=== PATIENT | female | born 1990 | race Native Hawaiian/Other Pacific Islander ===

== ENCOUNTER → 2019-10-24 15:30 | Outpatient (CLI) | payer OTHER, MEDICAID, SELFPAY | PROVIDERS: Family Provider Family Medicine; PCP Family Medicine; Visit Provider Physician Assistant | DX: J02.9 Acute pharyngitis, unspecified (principal) | CPT/HCPCS: 87070 ==

== ENCOUNTER → 2019-11-30 08:12 | Outpatient (CLI) | payer OTHER, MEDICAID, SELFPAY ==
--- NOTE | 2019-11-30 | DI.US.S_ITS ---
PROCEDURE: US PELVIC COMPLETE INDICATIONS: POSITIVE TEST; DATES TECHNIQUE: Real-time scanning was performed of the pelvic organs, with image documentation. Additional endovaginal scanning was necessary due to incomplete visualization of the adnexal and endometrial structures by transabdominal scanning. COMPARISON: None. FINDINGS: Transabdominal scanning: A mild amount of simple appearing free pelvic fluid is seen, which is considered to be within physiologic limits. Limited scanning through the kidneys shows no hydronephrosis. Endovaginal scanning: Uterus: Uterus is normal in size at 9 x 5.4 x 6.4 cm. The endometrium measures 17 mm in combined thickness. No findings of an intrauterine can be seen. Ovaries: The right ovary measures 4 x 2.6 x 3.2 cm and demonstrates a complex cyst that measures 2.3 x 2.2 x 2.3 cm, with surrounding increased vascularity. The left ovary measures 3.1 x 1.6 x 1.6 cm. No adnexal masses are seen. IMPRESSION: No findings of an intrauterine are seen. These imaging findings most likely related to a completed spontaneous miscarriage. However, there is a cystic lesion with surrounding vascularity seen involving the right ovary. This most likely relates to a collapsing corpus luteum. Differential diagnosis includes an ovarian ectopic, yet this is considered to be statistically much less likely. Please correlate with known patient history. Close clinical followup, with serial beta-hCG and serial ultrasound are recommended, if clinically appropriate. A mild amount of free pelvic fluid is seen, which is considered to be within physiologic limits. Dictated by: Deo Stover M.D. on 11/30/2019 at 11:58 Approved by: Deo Stover M.D. on 11/30/2019 at 12:01
== END ==
PROVIDERS: Family Provider Family Medicine; PCP Family Medicine; Referring Provider Family Medicine; Visit Provider Family Medicine
DX: Z36.87 Encounter for antenatal screening for uncertain dates (principal)
CPT/HCPCS: 76830; 76856

== ENCOUNTER → 2019-12-10 11:14 | Outpatient (CLI) | payer OTHER, MEDICAID, SELFPAY ==
--- NOTE | 2019-12-10 | DI.US.S_ITS ---
PROCEDURE: US OB <= 14 WEEKS FETUS INDICATIONS: Amenorrhea, unspecified OUTSIDE/PRIOR DATING DATA: Last menstrual period (LMP): 10/24/19. LMP-based estimated date of delivery (BC): 07/30/20 . First dating scan (date and location): 12/10/19 . Estimated date of delivery (BC) from first dating scan: 08/01/20 . TECHNIQUE: Real-time scanning was performed of the fetus and maternal pelvic organs, with image documentation. Endovaginal scanning was also performed to better visualize the fetus and maternal ovaries. COMPARISON: None. FINDINGS: Embryo: Intrauterine gestational sac is noted. Mean gestational sac diameter measures 1.6 cm, 6 weeks 3 days, corresponding to an BC of 08/01/20. However, no pole is identified. A yolk sac is visualized. Measurement variability in dating: +/- 4 weeks by LMP, +/- 7 days by mean sac diameter (use before 6 weeks gestation if crown-rump length not able to be measured), +/- 5 days by crown-rump length (up to 8 weeks 6 days gestation), +/- 7 days by crown-rump length (up to 13 weeks 6 days gestation). Maternal organs: Ovaries unremarkable except for a presumed right-sided corpus luteum. . Limited images through the kidneys demonstrate no hydronephrosis. IMPRESSION: Intrauterine gestational sac however no pole identified. This could represent early intrauterine , however cannot exclude blighted ovum and recommend 1 week follow-up pelvic ultrasound. Please correlate with serial beta HCG values Dictated by: Carlito Garcia M.D. on 12/10/2019 at 14:54 Approved by: Carlito Garcia M.D. on 12/10/2019 at 14:59
== END ==
PROVIDERS: Family Provider Family Medicine; PCP Family Medicine; Referring Provider Family Medicine; Visit Provider Family Medicine
DX: N91.2 Amenorrhea, unspecified (principal)
CPT/HCPCS: 76801

== ENCOUNTER → 2019-12-18 09:05 | Outpatient (CLI) | payer OTHER, MEDICAID, SELFPAY ==
--- NOTE | 2019-12-18 | DI.US.S_ITS ---
PROCEDURE: US OB <= 14 WEEKS FETUS INDICATIONS: OB FOLLOW UP OUTSIDE/PRIOR DATING DATA: Last menstrual period (LMP): 10/24/2019 . LMP-based estimated date of delivery (BC): 07/30/2020 . First dating scan (date and location): 12/10/2019 . Estimated date of delivery (BC) from first dating scan: 08/01/2020 . TECHNIQUE: Real-time scanning was performed of the fetus and maternal pelvic organs, with image documentation. Endovaginal scanning was also performed to better visualize the fetus and maternal ovaries. [facility] 14 WEEKS F[facility]US, 12/10/2019, 11:56. FINDINGS: Embryo: Single live intrauterine is identified with crown-rump length measuring 9 mm corresponding to 7 weeks 0 days. heart rate identified at 140 beats per minute. Measurement variability in dating: +/- 4 weeks by LMP, +/- 7 days by mean sac diameter (use before 6 weeks gestation if crown-rump length not able to be measured), +/- 5 days by crown-rump length (up to 8 weeks 6 days gestation), +/- 7 days by crown-rump length (up to 13 weeks 6 days gestation). Maternal organs: Ovaries demonstrate a right corpus luteal cyst.. Limited images through the kidneys demonstrate no hydronephrosis. Cervical length measures 3.8 cm. IMPRESSION: 1. Single live intrauterine with ultrasound gestational age of 7 weeks 0 days corresponding to ultrasound BC of 08/01/2020. 2. Recommend follow-up imaging at 20-22 weeks for dates and anatomy. Dictated by: Radha Moore M.D. on 12/18/2019 at 13:42 Approved by: Radha Moore M.D. on 12/18/2019 at 13:49
== END ==
PROVIDERS: Family Provider Family Medicine; PCP Family Medicine; Referring Provider Family Medicine; Visit Provider Family Medicine
DX: Z36.2 Encounter for other antenatal screening follow-up (principal); Z3A.01 Less than 8 weeks gestation of pregnancy
CPT/HCPCS: 76801; 76817

== ENCOUNTER → 2020-03-14 09:11 | Outpatient (CLI) | payer OTHER, MEDICAID, SELFPAY ==
--- NOTE | 2020-03-14 | DI.US.S_ITS ---
PROCEDURE: US OB >= 14 WEEKS FETUS INDICATIONS: ANATOMY SCAN OUTSIDE/PRIOR DATING DATA: Last menstrual period (LMP): 10/24/2019. LMP-based estimated date of delivery (BC): 07/30/2020 . First dating scan (date and location): 12/10/2019 . Estimated date of delivery (BC) from first dating scan: 08/01/2020 . TECHNIQUE: Real-time scanning was performed of the fetus, with image documentation and biometric measurements. Endovaginal scanning: No COMPARISON: [facility], OB <= 14 WEEKS FETUS, 12/18/2019, 9:46. FINDINGS: General: A single living intrauterine gestation is present. Presentation: Breech. Placenta: Placental position is anterior , without previa. Amniotic fluid index: 16 cm cm, normal range is 5-24 cm. heart rate: 152 beats per minute. Maternal cervical canal: 3.8 cm cm long. Normal lower limit is 2.5 cm. biometrics: Biparietal diameter: 19 weeks 3 Head circumference: 19 weeks 4 days Abdominal circumference: 20 weeks 1 day Femur length: 20 weeks 2 days Estimated gestational age from initial scan: 20 weeks Composite gestational age from present scan: 19 weeks 6 days Estimated weight and percentile: 335 g; 54th percentile Measurement variability for biometric dating: +/- 7 days from 14 weeks to 15 weeks 6 days gestation, +/- 10 days from 16 weeks to 21 weeks 6 days gestation, +/- 2 weeks from 22 weeks to 27 weeks 6 days gestation, +/- 3 weeks for 28 weeks gestation or later. weight reference: 4500 g or EFW >90/95% is considered macrosomia or large for gestational age. EFW <10% is small for gestational age. EFW 5% or less is considered intra-uterine growth restriction. Anatomic survey: Neuro: Ventricles are non-dilated at less than 10 mm. Cisterna magna is normal at 3-11 mm. Cerebellum is normal in size and morphology. Nuchal skin fold: Normal at less than 6 mm between 14-21 weeks gestational age. Face: Nose and lips, facial profile are normal. Spine: No evidence for spina bifida. Heart: 4-chambered heart is present, with normal ventricular outflow tracts. Diaphragm: Diaphragm is intact. Stomach: Left-sided stomach is present. Kidneys: No hydronephrosis. Normal is less than 5 mm in 2nd trimester, less than 7 mm in 3rd trimester. Cord: 3-vessel cord has orthotopic insertion. Bladder: Normal in size. Extremities: All 4 extremities identified. IMPRESSION: 1. Single living intrauterine demonstrating appropriate interval growth with estimated weight at the 54th percentile. 2. Normal anatomic survey. Dictated by: Lizandro Bojorquez [facility] Interpreted: Case Brown MD on 03/14/2020 at 11:10 Approved by: Case Brown M.D. on 03/14/2020 at 14:17
== END ==
PROVIDERS: Family Provider Family Medicine; PCP Family Medicine; Referring Provider Family Medicine; Visit Provider Family Medicine
DX: Z36.89 Encounter for other specified antenatal screening (principal); Z3A.19 19 weeks gestation of pregnancy
CPT/HCPCS: 76811

== ENCOUNTER 2020-05-06 14:50 | Emergency (ER) | payer OTHER, MEDICAID, SELFPAY ==
--- NOTE | 2020-05-06 14:55 | DI.US.S_ITS ---
PROCEDURE: US OB >= 14 WEEKS FETUS INDICATIONS: bleeding during sex/check placenta/fluid/fetus/cervix OUTSIDE/PRIOR DATING DATA: Last menstrual period (LMP): 10/24/2019 . LMP-based estimated date of delivery (BC): 07/30/2020 . First dating scan (date and location): 12/10/2019 . Estimated date of delivery (BC) from first dating scan: 08/01/2020 . TECHNIQUE: Real-time scanning was performed of the fetus, with image documentation and biometric measurements. COMPARISON: [facility], OB >= 14 WEEKS FETUS, 03/14/2020, 9:25. FINDINGS: General: A single living intrauterine gestation is present. Presentation: Breech. Placenta: Placental position is anterior , without previa. Amniotic fluid index: 13.6 cm, normal range is 5-24 cm. heart rate: 143 beats per minute. Maternal cervical canal: 4.2 cm long. Normal lower limit is 2.5 cm. biometrics: Biparietal diameter: 6.9 cm 27 weeks 5 days Head circumference: 27.1 cm 28 weeks 2 days Abdominal circumference: 22.9 cm 27 weeks 2 days Femur length: 5.3 cm 20 weeks 2 days Estimated gestational age from initial scan: 27 weeks 4 days Composite gestational age from present scan: 27 weeks 6 days Estimated weight and percentile: 1123 g 45th percentile IMPRESSION: 1. Single live intrauterine with appropriate interval growth. Dictated by: Radha Moore M.D. on 05/06/2020 at 18:42 Approved by: Radha Moore M.D. on 05/06/2020 at 18:44
[2020-05-06 14:58] VITALS: BP 108/69; PULSE 92; RESP 19; TEMP 36.4; O2SAT 98; BMI 34.0
[2020-05-06 17:12] VITALS: BP 105/65; PULSE 82; O2SAT 97
[2020-05-06 17:30] VITALS: BP 104/59; PULSE 83; O2SAT 99
[2020-05-06 18:00] VITALS: BP 107/59; PULSE 88; O2SAT 98
--- NOTE | 2020-05-06 18:08 | ED_ITS ---
H[facility] - [facility] - Last Filed: 05/06/20 21:56> General Chief complaint: OB/Uterine Contractions Stated complaint: 28 wks preg for US/ bleeding Time Seen by Provider: 05/06/20 16:08 Source: patient Mode of arrival: Family Vehicle Limitations: no limitations History of Present Illness HPI Narrative: This is a 29-year-old female, and 28 week +2 EGA female with LMP of 10/22/2019 presents to ED with chief complain of a vaginal bleeding which occurred last night after intercourse which was heavy and company discomfort for about an hour then subsided. Patient reports now she has been just spotting and there is no abdominal or pelvic pain at this time. Patient has been moving her status all day. She was evaluated by Dr. Braga at the office with pelvic exam and was referred to emergency room for ultrasound test. Otherwise, patient denies urinary symptoms, chest pain, breathing difficulty, fever. According to old EMR, blood type A+. Last US for OB on 12/18/19 found a single living IUP exhibiting appropriate interval growth with estimated weight at the 54% percentile with normal anatomic survey. Date of Last Menstrual Period: 10/22/19 Patient : Yes Expected Date of Delivery: 07/28/20 Related Data Allergies Allergy/AdvReac Type Severity Reaction Status Date / Time No Known Allergies Allergy Unknown Verified 05/06/20 15:03 [NO KNOWN ALLERGIES] Review of Systems <[facility] - Last Filed: 05/06/20 21:56> Review of Systems Narrative: General: Denies fever, chills, fatigue, malaise, sweats. HEENT: Denies sinus pain, ear pain, sore throat, difficulty swallowing, dizziness. Respiratory: Denies dyspnea, cough, wheezing, hemoptysis, sputum. Cardiovascular: Denies chest pain, palpitations, orthopnea, edema. Gastrointestinal: HPI : See HPI Musculoskeletal: Denies weakness, joint pain or bony pain. Skin: Denies rash, skin lesions, or other. Neurologic: Denies weakness, headache, numbness, change in speech, confusion, seizures, incoordination. Psychiatric: No concerning psychosocial issues. 12-point review of systems is negative except for those stated above. PMFSH - <[facility] - Last Filed: 05/06/20 21:56> Past Medical History Additional medical history: GERD Date of Last Menstrual Period: 10/22/19 Patient : Yes Expected Date of Delivery: 07/28/20 Exam <EBENEZER FinchP - Last Filed: 05/06/20 21:56> Narrative Exam Narrative: General appearance: well developed, well nourished, in no acute distress. Head: normocephalic, atraumatic, no scalp lesions, non-tender. ENT: Hearing grossly intact. Airway patent. Neck/Thyroid: neck supple, full range of motion, no visible masses or meningeal signs. No JVD, non-tender without lymphadenopathy. Skin: no suspicious rashes, lesions over visible areas. Warm and dry and appropriate color for ethnicity. Heart: no clubbing, no cyanosis, no edema. S1 and S2 normal. RRR w/o murmurs, clicks, or bruits. Lungs: Breathing even and unlabored. No stridor. No accessory muscles used. Able to speak in full sentences. Chest: normal shape and expansion. Abdomen: non-obese, non-distended. soft to palpate and non-tender. Bowel sounds intact in all quadrant. Neurologic: alert and oriented. Cognitive exam, ANALYSIS INTERN and PNS grossly intact on informal exam. Psych: good eye contact, normal affect. Initial Vital Signs Initial Vital Signs: Vital Signs Temperature 97.6 F 05/06/20 14:58 Pulse Rate 92 H 05/06/20 14:58 Respiratory Rate 19 05/06/20 14:58 Blood Pressure 108/69 05/06/20 14:58 Pulse Oximetry 98 05/06/20 14:58 <Brooke Espinoza DO - Last Filed: 05/07/20 07:21> Initial Vital Signs Initial Vital Signs: Vital Signs Temperature 97.6 F 05/06/20 14:58 Pulse Rate 92 H 05/06/20 14:58 Respiratory Rate 19 05/06/20 14:58 Blood Pressure 108/69 05/06/20 14:58 Pulse Oximetry 98 05/06/20 14:58 Scores <Natanael Murphy [employer] - Last Filed: 05/06/20 21:56> GCS Stacie coma scale eye opening: Spontaneous Stacie coma scale verbal response: Orientated Kennard coma scale motor response: Obey commands Kennard coma scale total score: 15 Course <Natanael QUIANA Murphy - Last Filed: 05/06/20 21:56> Orders Ordered: ED Orders 05/06/20 14:55 US OB >= 14 weeks Fetus Stat Vital Signs Vital signs: Vital Signs - 8 hr 05/06/20 14:58 05/06/20 17:12 05/06/20 17:30 Temperature 97.6 F Pulse Rate 92 H 82 83 Respiratory Rate 19 Blood Pressure 108/69 105/65 104/59 L Pulse Oximetry 98 97 99 05/06/20 18:00 05/06/20 19:14 Temperature Pulse Rate 88 88 Respiratory Rate 16 Blood Pressure 107/59 L 106/76 Pulse Oximetry 98 99 <Brooke Espinoza DO - Last Filed: 05/07/20 07:21> Orders Ordered: ED Orders 05/06/20 14:55 US OB >= 14 weeks Fetus Stat Vital Signs Vital signs: Vital Signs - 8 hr 05/06/20 14:58 05/06/20 17:12 05/06/20 17:30 Temperature 97.6 F Pulse Rate 92 H 82 83 Respiratory Rate 19 Blood Pressure 108/69 105/65 104/59 L Pulse Oximetry 98 97 99 05/06/20 18:00 05/06/20 19:14 Temperature Pulse Rate 88 88 Respiratory Rate 16 Blood Pressure 107/59 L 106/76 Pulse Oximetry 98 99 MDM - OB/Uterine Contractions <Natanael McleanangRosalinaQUIANA Miller - Last Filed: 05/06/20 21:56> Differential Diagnosis Differential diagnosis: Likely other (Placenta previa, placenta rupture, vaginal bleeding during ) Medical Records Attestation: I reviewed the patient's medical records. Lab Data Attestation: I reviewed the patient's lab results. Labs: Urine Dip Bedside Urine Glucose Negative Bedside Urine Bilirubin - Negative Bedside Urine Ketone - Negative Urine Specific [place] 1.015 Bedside Urine Occult Blood - Negative Bedside Urine pH 6.5 Bedside Urine Protein - Negative Bedside Urine Urobilinogen - Negative Bedside Urine Nitrite - Negative Bedside Urine Leukocytes - Negative Esterase Imaging Data US-OB: Radiologist's Impression: [address] [id number] ReportSigned Patient: Jesika Wakefield KMR#: [id number]: 1990Acct:[id number]/Sex: FDate of Service: 05/06/20Loc: EDAccession Number: [id number] Procedure: US OB >= 14 weeks Fetus Ordering Provider: Brooke Espinoza D.O. PROCEDURE: OB >= 14 WEEKS FETUS INDICATIONS: bleeding during sex/check placenta/fluid/fetus/cervix OUTSIDE/PRIOR DATING DATA: Last menstrual period (LMP): 10/24/2019 . LMP-based estimated date of delivery (BC): 07/30/2020 . First dating scan (date and location): 12/10/2019 . Estimated date of delivery (BC) from first dating scan: 08/01/2020 . TECHNIQUE: Real-time scanning was performed of the fetus, with image documentation and biometric measurements. COMPARISON: [facility], OB >= 14 WEEKS FETUS, 03/14/2020, 9:25. FINDINGS: General: A single living intrauterine gestation is present. Presentation: Breech. Placenta: Placental position is anterior , without previa. Amniotic fluid index: 13.6 cm, normal range is 5-24 cm. heart rate: 143 beats per minute. Maternal cervical canal: 4.2 cm long. Normal lower limit is 2.5 cm. biometrics: Biparietal diameter: 6.9 cm 27 weeks 5 days Head circumference: 27.1 cm 28 weeks 2 days Abdominal circumference: 22.9 cm 27 weeks 2 days Femur length: 5.3 cm 20 weeks 2 days Estimated gestational age from initial scan: 27 weeks 4 days Composite gestational age from present scan: 27 weeks 6 days Estimated weight and percentile: 1123 g 45th percentile IMPRESSION: 1. Single live intrauterine with appropriate interval growth. Dictated by: Radha Moore M.D. on 05/06/2020 at 18:42 Approved by: Radha Moore M.D. on 05/06/2020 at 18:44 MDM Narrative Medical decision making narrative: This is a 29 year female with and 28+ 2 EGA presents to ED with chief complain of vaginal bleeding that occurred last night with abdominal discomfort which lasted for 1 hour after intercourse. Patient denies any pain at this time and vaginal bleeding slow to scant spotting at this time. Patient was evaluated with pelvic exam by Dr. Braga today referred to emergency room for ultrasound test. Urine test does not indicate infection. Pelvic ultrasoundLiving IUP with heart tones at 143 bpm. Placenta position is anterior without previa. Normal limits of maternal cervix. Findings were shared with patient and advised pelvic rest until she is cleared by PCP next week. She was informed to take Tylenol as needed for discomfort and return precautions discussed with patient which she verbalized understanding and agreement with the treatment plan. Blood and Rh type A+. <Brooke Espinoza DO - Last Filed: 05/07/20 07:21> Lab Data Labs: Urine Dip Bedside Urine Glucose Negative Bedside Urine Bilirubin - Negative Bedside Urine Ketone - Negative Urine Specific [place] 1.015 Bedside Urine Occult Blood - Negative Bedside Urine pH 6.5 Bedside Urine Protein - Negative Bedside Urine Urobilinogen - Negative Bedside Urine Nitrite - Negative Bedside Urine Leukocytes - Negative Esterase Discharge Plan Departure Patient Disposition: Home Clinical Impression: Vaginal bleeding during Instructions: DI for Vaginal Bleeding During Activity Restrictions/Additional Instructions: You have been diagnosed with [vaginal bleeding during in 3rd trimester. Ultrasound without acute findings such as previa or abruptio. Urine test without indications for infection]. What to do: *Take your medications as directed. You can take [id number] Tylenol as needed for discomfort. *Follow up with your primary care provider in 2-3 days, call for an appointment. Let them know you were seen in the ED and that we asked you to be seen in follow up. Please pelvic rest until you are clear by primary care doctor next week. *Return to ED if you have any new, worsening, or concerning symptoms, such as [chest pain, breathing difficulty, lightheadedness, fever, urinary symptoms, severe vaginal bleeding required changing a pad every hour for 3 hours, abdominal pain, pelvic pain or any acute concerns]. Referrals: Prince Hancock MD [Primary Care Provider] - <Brooke Espinoza DO - Last Filed: 05/07/20 07:21> Cosign ED Attending Cosignature Attestation: I was immediately available in the department for consultation. Documentation has been reviewed.
[2020-05-06 19:14] VITALS: BP 106/76; PULSE 88; RESP 16; O2SAT 99
== END 2020-05-06 19:21 | disposition home or self-care (01) ==
PROVIDERS: Emergency Provider Nurse Practitioner Family; Family Provider Family Medicine; PCP Family Medicine
DX: O46.93 Antepartum hemorrhage, unspecified, third trimester (principal); Z3A.28 28 weeks gestation of pregnancy
CPT/HCPCS: 76811; 81003; 99283

== ENCOUNTER → 2020-06-20 09:09 | Outpatient (CLI) | payer OTHER, MEDICAID, SELFPAY ==
--- NOTE | 2020-06-20 | DI.US.S_ITS ---
PROCEDURE: US OB LIMITED INDICATIONS: SIZE GREATER THAN DATES OUTSIDE/PRIOR DATING DATA: Last menstrual period (LMP): October 24, 2019. LMP-based estimated date of delivery (BC): July 30, 2020. First dating scan (date and location): December 10, 2019. Estimated date of delivery (BC) from first dating scan: August 01, 2020. TECHNIQUE: Real-time scanning was performed of the fetus, with image documentation and biometric measurements. Endovaginal scanning: Performed COMPARISON: None. FINDINGS: General: A single living intrauterine gestation is present. Presentation: Vertex Placenta: Placental position is anterior, without previa. Amniotic fluid index: 22.2 cm, normal range is 5-24 cm. heart rate: 140 beats per minute. Maternal cervical canal: Not evaluated biometrics: Biparietal diameter: 34 weeks 1 day Head circumference: 35 weeks 2 days Abdominal circumference: 34 weeks 2 days Femur length: 34 weeks 1 day Estimated gestational age from initial scan: 34 weeks 0 days. Composite gestational age from present scan: 34 weeks 3 days Estimated weight and percentile: 2395 grams ; 52nd percentile. Measurement variability for biometric dating: +/- 7 days from 14 weeks to 15 weeks 6 days gestation, +/- 10 days from 16 weeks to 21 weeks 6 days gestation, +/- 2 weeks from 22 weeks to 27 weeks 6 days gestation, +/- 3 weeks for 28 weeks gestation or later. weight reference: 4500 g or EFW >90/95% is considered macrosomia or large for gestational age. EFW <10% is small for gestational age. EFW 5% or less is considered intra-uterine growth restriction. Other: Not applicable. IMPRESSION: 1. Single living intrauterine with appropriate interval growth. 2. Amniotic fluid index 22.2 centimeters approximately 90th percentile. Dictated by: Brittany Guerra MD, PhD on 06/20/2020 at 15:38 Approved by: Brittany Guerra MD, PhD on 06/20/2020 at 15:41
== END ==
PROVIDERS: Family Provider Family Medicine; PCP Family Medicine; Referring Provider Family Medicine; Visit Provider Family Medicine
DX: O26.843 Uterine size-date discrepancy, third trimester (principal); Z3A.34 34 weeks gestation of pregnancy
CPT/HCPCS: 76815

== ENCOUNTER → 2020-07-05 11:17 | Outpatient (ROUT) | payer OTHER, MEDICAID, SELFPAY | PROVIDERS: Family Provider Family Medicine; PCP Family Medicine; Visit Provider Family Medicine | DX: Z34.90 Encounter for supervision of normal pregnancy, unspecified, unspecified trimester (principal) | CPT/HCPCS: 87081 ==

== ENCOUNTER 2020-07-15 16:14 | Outpatient (CLI) | payer OTHER, MEDICAID, SELFPAY | END 2020-07-15 17:25 | disposition home or self-care (01) | LOC: LABOR 16:58 → OB 07-18 08:06 | PROVIDERS: Family Provider Family Medicine; PCP Family Medicine; Referring Provider Obstetrics & Gynecology; Visit Provider Obstetrics & Gynecology | DX: O12.03 Gestational edema, third trimester (principal); O26.893 Other specified pregnancy related conditions, third trimester; R51.9 Headache, unspecified; H53.8 Other visual disturbances; Z3A.37 37 weeks gestation of pregnancy | CPT/HCPCS: 59025; G0378; G0379 ==

== ENCOUNTER 2020-08-02 13:21 | Outpatient (CLI) | payer OTHER, MEDICAID, SELFPAY | END 2020-08-02 14:50 | disposition home or self-care (01) | LOC: LABOR 14:01 → OB 08-03 08:43 | PROVIDERS: Family Provider Family Medicine; PCP Family Medicine; Referring Provider Family Medicine; Visit Provider Family Medicine | DX: O48.0 Post-term pregnancy (principal); Z3A.41 41 weeks gestation of pregnancy | CPT/HCPCS: 59025; 59050; 59200; 96360; G0378; G0379 ==

== ENCOUNTER 2020-08-09 03:55 | Inpatient (IN) | payer OTHER, MEDICAID, SELFPAY ==
[2020-08-09 04:34] LABS: Add Manual Diff / Slide Review NO; Basophils Absolute Auto 0 /uL (0-100); Basophils Percent Auto 0.2 % (0-2); Eosinophils Absolute Auto 400 /uL (0-450); Eosinophils Percent Auto 2.9 % (2-4); Hematocrit 31.9 % (36-46); Hemoglobin 10.2 g/dL (12.0-16.0); Lymphocytes Absolute Auto 2000 /uL (1100-4500); Lymphocytes Percent Auto 16.1 % (25-40); Mean Corpuscular HGB Conc 32.1 % (30-36); Mean Corpuscular Hemoglobin 25.1 PG (26-34); Mean Corpuscular Volume 78.2 fL (80-100); Monocytes Absolute Auto 600 /uL (0-900); Monocytes Percent Auto 4.6 % (3-14); Neutrophils Absolute Auto 9600 /uL (1500-7000); Neutrophils Percent Auto 76.2 % (50-75); Platelet Count 250 X10^3/uL (150-400); Red Blood Cell Count 4.07 X10^6/uL (4.0-5.2); Red Cell Distribution Width 15.8 % (11.6-14.8); White Blood Cell Count 12.6 X10^3/uL (4.5-11.0)
[2020-08-09 05:32] LABS: COVID19 - ADMIT (NP swab/PCR) Negative (Negative)
[2020-08-09 05:57] VITALS: BP 124/74
--- NOTE | 2020-08-09 08:24 | PM.OBHP.1 ---
OB HPI Date/Time Date of admission: 08/09/20 Date Patient Seen: 08/09/20 Time Patient Seen: 08:24 History of Present Condition Chief complaint: evaluation of labor : 5 Para: 3 Estimated Date of Delivery: 07/30/20 Estimated Gestational Age (weeks): 41 and Narrative: Jesika Wakefield is a 29 year old female who presents today after having rupture approximately 3:00 a.m. last night. Yellowish color is with some home. Otherwise no change. Has not had a lot of discharge since that time. Contraction of increasing intensity. No other significant change. Evaluation Evaluation Baseline heart rate: 135 Contraction Frequency (minutes): 3 Uterine Contraction Intensity: Moderate Status: Category l Cervical dilation (cm): 4 Cervical effacement (%): 80 station: -1 Laboratory results: Laboratory Tests 08/09/20 08/09/20 08/09/20 04:00 04:22 04:22 WBC 12.6 H RBC 4.07 Hgb 10.2 L Hct 31.9 L MCV 78.2 L MCH 25.1 L MCHC 32.1 RDW 15.8 H Plt Count 250 Neut % (Auto) 76.2 H Lymph % (Auto) 16.1 L [place] % (Auto) 4.6 Eos % (Auto) 2.9 Baso % (Auto) 0.2 Neut # (Auto) 9600 H Lymph # (Auto) 2000 [place] # (Auto) 600 Eos # (Auto) 400 Baso # (Auto) 0 SARS-CoV-2 (PCR) Negative Blood Type A Positive Antibody Screen Negative Non-invasive Membranes Rupture Test: positive [facility] Medical History Sinusitis Social History Smoking Status: Never smoker Meds Home Medications and Allergies Allergies Allergy/AdvReac Type Severity Reaction Status Date / Time No Known Allergies Allergy Unknown Verified 05/06/20 15:03 [NO KNOWN ALLERGIES] Review of Systems Review of Systems ROS: Yes All systems reviewed with the patient and are negative except as otherwise documented Exam Vital Signs (past 8 hours): - 08/09/20 05:57 Blood Pressure 124/74 Narrative Exam Narrative: Alert smiling female in no acute distress except with contractions Lungs are clear. Heart regular rate and rhythm. Abdomen is gravid extremities without cyanosis clubbing edema Objective Labs Result Diagrams: 08/09/20 04:22 Labs: Laboratory Results - last 24 hr 08/09/20 08/09/20 08/09/20 04:00 04:22 04:22 WBC 12.6 H RBC 4.07 Hgb 10.2 L Hct 31.9 L MCV 78.2 L MCH 25.1 L MCHC 32.1 RDW 15.8 H Plt Count 250 Neut % (Auto) 76.2 H Lymph % (Auto) 16.1 L [place] % (Auto) 4.6 Eos % (Auto) 2.9 Baso % (Auto) 0.2 Neut # (Auto) 9600 H Lymph # (Auto) 2000 [place] # (Auto) 600 Eos # (Auto) 400 Baso # (Auto) 0 SARS-CoV-2 (PCR) Negative Blood Type A Positive Antibody Screen Negative Assessment and Plan Assessment and Plan Assessment and Plan narrative: [age] and 3 7th week intrauterine status post rupture mild meconium baby looks good. Prepare for vaginal delivery
--- NOTE | 2020-08-09 12:51 | PM.OBPRVD ---
Labor & Delivery Delivery date: 08/09/20 Intrapartal Events: None Cervical ripening method: none Induction method: none Delivery monitor: external FHT Route of delivery: L&D Laceration Description: Periurethral - 1st Degree and Perineal - 2nd Degree Delivery repair: chromic Estimated blood loss (mL): 200 Complications: none Narrative: Patient presented with rupture of membranes. Said to have some yellowish chunks. But no obvious other changes. Child had been moving well. Contractions or slowly increasing. She presented 3-4 cm slowly may change. Rupture was approximately 9 hours. No evidence of meconium was seen. Patient heart monitor was category 1 throughout for stage period with no abnormality. Really was category 1 throughout second-stage which was incredibly rapid. No other changes. She progressed and did so without anesthesia. She did get into the bath for a short period of time second-stage ended and she began pushing rapidly within 2-3 pushes she delivered 0 0 over second-degree perineal tear. Nuchal cord x1 which was slipped on the perineum. Child then rapidly delivered with dad helping deliver up onto the abdomen. We waited 1-2 minutes and then cord was clamped cord bloods were obtained. Placenta delivered spontaneous intact 3 vessels. Repair was with 1% lidocaine for anesthesia and running chromic in the usual manner. Patient tolerated well. 10 units of Pitocin was given IM. After the placenta. EBL 200 cc. Mother and infant were in stable condition. Plan for aftercare: Routine care
[2020-08-09] MEDS: IBUPROFEN 600 MG TABLET PO (16:35)
[2020-08-10] MEDS: IBUPROFEN 600 MG TABLET PO ×2 (00:09→09:01)
[2020-08-10] MEDS: ACETAMINOPHEN 325 MG TABLET 650 MG PO (02:35)
[2020-08-10 06:11] LABS: Hematocrit 31.2 % (36-46); Hemoglobin 9.9 g/dL (12.0-16.0)
--- NOTE | 2020-08-10 08:59 | PM.OBDS.1 ---
Discharge Providers Provider Date of admission: 08/09/20 03:55 Discharge Date: 08/10/20 Primary care physician: Prince Hancock MD Consults: 08/10/20 12:49 Consult to Grease Refiner Operator Routine Comment: Discharge provider: Prince Hancock MD Summary Hospital Course Date Patient Seen: 08/10/20 Time Patient Seen: 08:59 Diagnoses: Normal 41 and 4 7th week intrauterine without complications Hospital Course: Patient came in ruptured with probable light meconium. There was no evidence of further meconium. Child looks good on monitor. She progressed to delivery had vaginal delivery without complications. Small laceration which was repaired. She recovered well. She is feeling great. She is having minimal pain minimal bleeding H&H is stable. No other significant change or complaint. No issues with breast-feeding feels like she is doing well and is requesting to go home. Vital signs were unremarkable exam is normal and she will be discharged home. Regular vaginal delivery instructions discussed questions answered follow-up with me in 6 weeks Peripartum Data Infant Delivery Method: Natural Vaginal Laceration Description: Perineal - 2nd Degree complications: none Status at Discharge Cognitive/behavioral status at discharge: oriented Functional status at discharge: independent ambulation Overall status at discharge: patient is progressing back to baseline Time Spent with Patient Time attestation: Total time spent providing and/or coordinating discharge services: Objective Labs Result Diagrams: 08/10/20 05:44 Labs: Laboratory Results - last 24 hr 08/10/20 05:44 Hgb 9.9 L Hct 31.2 L Exam Narrative Exam Narrative: Alert female mildly fatigued but otherwise smiling. Lungs are clear. Heart regular rate and rhythm. Uterus is at umbilicus. Extremities without calf tenderness no edema Discharge Plan Discharge Plan Patient Disposition: Home Discharge orders & Medications Prescriptions: New ibuprofen 600 mg Tablet 600 mg PO Q6HR PRN (Reason: Pain, Mild (1-3)) Qty: 90 RF: 1 Prenatabs Rx 29 mg iron- 1 mg Tablet 1 tab PO DAILY Qty: 90 RF: 0 docusate sodium [Dulcolax Stool Softener (dss)] 100 mg capsule 100 mg PO BID Qty: 60 RF: 0 Follow up/Referrals: Prince Hancock MD [Primary Care Provider] - 6 Weeks Diet/Activity/Treatments Diet: Diet as Tolerated Activity: as tolerated Skin/Wound/Dressing Care Report to your healthcare provider any signs of infection, such as:: chills, fever, night sweats, increased pain, unusual drainage and unusual redness Discharge Data Primary Care Provider: Prince Hancock
[2020-08-10] MEDS: PRENATAL VIT,CALC/IRON/FOLIC 1 TABLET 1 TAB PO (09:02)
[2020-08-10 10:31] VITALS: BP 122/75; PULSE 81; RESP 16; TEMP 36.9
== END 2020-08-10 12:45 | disposition home or self-care (01) | DRG 560 ==
PROVIDERS: Admitting Provider Family Medicine; Family Provider Family Medicine; PCP Family Medicine; Referring Provider Family Medicine; Visit Provider Family Medicine
DX: O48.0 Post-term pregnancy (principal); Z3A.41 41 weeks gestation of pregnancy; Z37.0 Single live birth; O70.1 Second degree perineal laceration during delivery; O71.82 Other specified trauma to perineum and vulva; O69.81X0 Labor and delivery complicated by cord around neck, without compression, not applicable or unspecified; Z20.822 Contact with and (suspected) exposure to COVID-19
CPT/HCPCS: 36415; 59050; 85014; 85018; 85025; 86850; 86900; 86901; 87635; C9803; G0379

== ENCOUNTER → 2021-06-27 13:30 | Outpatient (CLI) | payer OTHER, MEDICAID, SELFPAY | PROVIDERS: Family Provider Family Medicine; PCP Family Medicine; Visit Provider Physician Assistant | DX: R30.0 Dysuria (principal) | CPT/HCPCS: 81002; 87086 ==

== ENCOUNTER → 2021-12-15 08:44 | Outpatient (CLI) | payer OTHER, MEDICAID, SELFPAY | PROVIDERS: Family Provider Family Medicine; PCP Family Medicine; Visit Provider Registered Nurse | DX: N39.0 Urinary tract infection, site not specified (principal) | CPT/HCPCS: 81002; 87086 ==

== ENCOUNTER → 2022-05-25 16:51 | Outpatient (CLI) | payer OTHER, MEDICAID, SELFPAY ==
[2022-05-31 15:12] LABS: QuantiFERON Mitogen Value >10.00 IU/mL (.); QuantiFERON Nil Value 0.05 IU/mL (.); QuantiFERON TB Gold Plus Negative (Negative); QuantiFERON TB1 Ag Value 0.06 IU/mL (.); QuantiFERON TB2 Ag Value 0.06 IU/mL (.)
== END ==
PROVIDERS: Family Provider Family Medicine; PCP Family Medicine; Referring Provider Family Medicine; Visit Provider Family Medicine
DX: Z13.89 Encounter for screening for other disorder (principal)
CPT/HCPCS: 36415; 86480

== ENCOUNTER 2023-11-20 10:10 | Emergency (ER) | payer OTHER, MEDICAID, SELFPAY ==
--- NOTE | 2023-11-20 10:23 | EKG_ITS ---
[facility] [address] [place] [address] Test Date: 2023-11-20 Pat Name: Jesika Wakefield Department: [facility] Room: Gender: Female Trimming Caser: KENNA : 1990 Requested By: Order Number: [id number] Reading MD: Mat Luque MD Measurements Intervals [place] Rate: 91 P: 56 ME: 146 QRS: 80 QRSD: 82 T: 30 QT: 340 QTc: 418 Interpretive Statements Normal sinus rhythm Nonspecific ST and T wave abnormality Electronically Signed On 11-21-2023 8:25:29 PDT by Mat Luque MD
[2023-11-20 10:24] VITALS: BP 145/81; PULSE 103; RESP 17; TEMP 36.6; O2SAT 100; BMI 22.6
[2023-11-20 11:21] LABS: Add Manual Diff / Slide Review NO; Basophils Absolute Auto 0 /uL (0-100); Basophils Percent Auto 0.5 % (0-2); Eosinophils Absolute Auto 100 /uL (0-450); Eosinophils Percent Auto 1.2 % (2-4); Hematocrit 37.8 % (36-46); Hemoglobin 13.1 g/dL (12.0-16.0); Lymphocytes Absolute Auto 1300 /uL (1100-4500); Lymphocytes Percent Auto 20.8 % (25-40); Mean Corpuscular HGB Conc 34.5 % (30-36); Mean Corpuscular Volume 89.9 fL (80-100); Monocytes Absolute Auto 300 /uL (0-900); Monocytes Percent Auto 4.5 % (3-14); Neutrophils Absolute Auto 4500 /uL (1500-7000); Platelet Count 268 X10^3/uL (150-400); Red Blood Cell Count 4.21 X10^6/uL (4.0-5.2); Red Cell Distribution Width 13.7 % (11.6-14.8); White Blood Cell Count 6.2 X10^3/uL (4.5-11.0)
--- NOTE | 2023-11-20 11:25 | ED.GENADULT ---
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 She took a single dose of Pepto-Bismol in the middle of the night. She was still uncomfortable this morning and comes in for further evaluation. She has not complaining of vomiting and has some mild nausea. There was no dysuria, no stool now for well over 8 hours. She did not report any blood in the stool initially. No recent travel or other exposures for infectious disease etiologies for a source of diarrhea. Related Data Previous Rx's Medication Instructions Recorded docusate sodium 100 mg capsule 100 mg PO BID #60 caps 08/10/20 (Dulcolax Stool Softener (docusate)) ibuprofen 600 mg tablet 600 mg PO Q6HR PRN Pain, Mild 08/10/20 (1-3) #90 tabs vitamin 1 tab PO DAILY #90 tabs 08/10/20 no.76-iron,carbonyl 29 mg iron-folic acid 1 mg tablet (Prenatabs Rx) Allergies Allergy/AdvReac Type Severity Reaction Status Date / Time No Known Allergies Allergy Unknown Verified 11/20/23 10:45 [NO KNOWN ALLERGIES] Review of Systems Review of Systems Narrative: Pertinent positive and negative findings as per HPI Patient History Medical History Sinusitis Social History Smoking Status: Never smoker Smoking Status: Never smoker alcohol intake frequency: other Substance Use Type: does not use Exam Initial Vital Signs Initial Vital Signs: Vital Signs Temperature 98 F 11/20/23 10:24 Pulse Rate 103 H 11/20/23 10:24 Respiratory Rate 17 11/20/23 10:24 Blood Pressure 145/81 H 11/20/23 10:24 Pulse Oximetry 100 11/20/23 10:24 Oxygen Delivery Method Room Air 11/20/23 10:24 General: Healthy appearing, in no acute distress. Able to give a complete and coherent history. Well-nourished well-developed HEENT: Moist mucous membranes, normal sclera with reactive pupils, Respiratory: Lungs are clear to auscultation, no wheezing no rales no rhonchi. Full and symmetrical air movement Cardiac: Regular rate and rhythm no murmurs no bruits Abdomen: Soft, nontender, no acute surgical abdomen, no flank pain Skin: Warm and dry, no rashes Neurologic: Grossly neurologically intact with no obvious asymmetries or abnormalities Extremities: No trauma, well perfused Psych: Cooperative, appropriate insight and affect Course Orders Ordered: ED Orders 11/20/23 10:23 EKG-12 Lead Stat 11/20/23 11:06 Complete Blood Count AUTO DIFF Stat Comprehensive Metabolic Panel Stat Lipase Stat Troponin & CK Cardiac Panel Stat Ondansetron HCl (Ondansetron 4 Mg/2 Ml Inj) 4 mg IV NOW PRN PRN Reason: Nausea And Vomiting Ondansetron HCl (Ondansetron 4 Mg Odt) 4 mg PO NOW PRN PRN Reason: Nausea And Vomiting Vital Signs Vital signs: Vital Signs - 8 hr 11/20/23 10:24 Temperature 98 F Pulse Rate 103 H Respiratory Rate 17 Blood Pressure 145/81 H Pulse Oximetry 100 Oxygen Delivery Method Room Air Medical Decision Making Lab Data 11/20/23 11:06 11/20/23 11:06 Labs: Lab Results 11/20/23 Range/Units 11:06 WBC 6.2 (4.5-11.0) X10^3/uL RBC 4.21 (4.0-5.2) X10^6/uL Hgb 13.1 (12.0-16.0) g/dL Hct 37.8 (36-46) % MCV 89.9 (80-100) fL MCH 31.0 (26-34) PG MCHC 34.5 (30-36) % RDW 13.7 (11.6-14.8) % Plt Count 268 (150-400) X10^3/uL Neut % (Auto) 73.0 (50-75) % Lymph % (Auto) 20.8 L (25-40) % [place] % (Auto) 4.5 (3-14) % Eos % (Auto) 1.2 L (2-4) % Baso % (Auto) 0.5 (0-2) % Neut # (Auto) 4500 (7408-6183) /uL Lymph # (Auto) 1300 (4627-0819) /uL [place] # (Auto) 300 (0-900) /uL Eos # (Auto) 100 (0-450) /uL Baso # (Auto) 0 (0-100) /uL Point of Care Testing Test Results Negative Urine Dip Bedside Urine Glucose Negative Bedside Urine Bilirubin - Negative Bedside Urine Ketone +/- 5 Urine Specific [place] 1.015 Bedside Urine Occult Blood - Negative Bedside Urine pH 8.5 Bedside Urine Protein - Negative Bedside Urine Urobilinogen - Negative Bedside Urine Nitrite - Negative Bedside Urine Leukocytes - Negative Esterase Point of care testing: Point of Care Testing Test Results Negative Urine Dip Bedside Urine Glucose Negative Bedside Urine Bilirubin - Negative Bedside Urine Ketone +/- 5 Urine Specific [place] 1.015 Bedside Urine Occult Blood - Negative Bedside Urine pH 8.5 Bedside Urine Protein - Negative Bedside Urine Urobilinogen - Negative Bedside Urine Nitrite - Negative Bedside Urine Leukocytes - Negative Esterase MDM Narrative Medical decision making narrative: CC: Diarrhea with abdominal bloating for 3 days Complicating co-morbidities: Works in [employer] Data collected from: patient Differential considered: Viral gastroenteritis, food intolerance, infectious etiology. She has not had any abdominal surgeries so obstruction is less likely. It has not localizing so diverticulitis or appendicitis or less likely. No vaginal discharge, pelvic inflammatory disease is less likely Exam documented above, pertinent findings include: Healthy appearing mild tenderness with deep palpation of the abdomen with no rebound or guarding. No signs of dehydration remainder of exam is benign Lab Test results independently reviewed as above. Pertinent findings: Urine is unremarkable, Urine is negative CBC is reassuring with no evidence of anemia nor infection Chemistries show normal renal function, normal potassium. Lipase is appropriate Patient states she is unable to provide stool sample so the probability of C diff is less likely Treatments: 1 L of fluid Discussion: 33-year-old woman with likely viral related gastroenteritis. She does note that 1 of her daughters did have abdominal pain that lasted for about a week and has since resolved. In the absence of fever, bloody stool, nonsurgical abdomen and not able to give a stool sample at this point I believe discharge home is safe. We did discuss additional imaging including CT scan and based on her benign labs and overall clean presentation decided that this would not add to the clinical picture and we decided to not proceed with CT scan. At this time there was no indication for hospitalization, questions are answered she is safe for discharge Discharge Plan Departure Patient Disposition: Home Clinical Impression: Diarrhea Qualifiers: Diarrhea type: unspecified type Qualified Code(s): R19.7 - Diarrhea, unspecified Instructions: DI for Viral Gastroenteritis -- Adult Activity Restrictions/Additional Instructions: Thank you for coming in today All of your blood work was very reassuring. The fact that you were not able to give me a stool sample makes me worry far less about things like Clostridium difficile or other infectious diarrheas. I suspect you do have a mild viral syndrome that is causing your symptoms and it seems that you are likely through the worst of it. I would advise simple foods and no dairy over the next 24 hours to allow your gut to completely heal If you feel that you are getting worse or develop new symptoms please return to the ER Prescriptions: No Action ibuprofen 600 mg Tablet 600 mg PO Q6HR PRN (Reason: Pain, Mild (1-3)) Qty: 90 1RF Prenatabs Rx 29 mg iron- 1 mg Tablet 1 tab PO DAILY Qty: 90 0RF docusate sodium [Dulcolax Stool Softener (dss)] 100 mg capsule 100 mg PO BID Qty: 60 0RF Referrals: Prince Hancock MD [Primary Care Provider] - Stand Alone Forms: Patient Portal/API
[2023-11-20 11:27] LABS: Alanine Aminotransferase 11 IU/L (<35); Albumin 4.1 g/dL (3.5-5.0); Albumin Globulin Ratio 1.2 (1.0-2.8); Alkaline Phosphatase 50 U/L (38-126); Aspartate Aminotransferase 18 IU/L (14-36); BUN Creatinine Ratio 16.1 (6-22); Bilirubin Total 0.6 mg/dL (0.2-1.3); Blood Urea Nitrogen 10 mg/dL (7-17); Calcium 9.5 mg/dL (8.4-10.2); Carbon Dioxide 23 mmol/L (22-32); Chloride 105 mmol/L (98-107); Estimated Glomerular Filt Rate > 60 mL/min (>60); Globulin 3.3 g/dL (1.7-4.1); Glucose 95 mg/dL (70-100); HEMOLYSIS < 15 (0-50); Lipase 47 U/L (23-300); Potassium 3.7 mmol/L (3.4-5.1); Sodium 135 mmol/L (137-145); Total Protein 7.4 g/dL (6.3-8.2)
[2023-11-20 11:37] LABS: Creatine Kinase 51 U/L (30-135)
[2023-11-20 11:48] LABS: Troponin I < 0.012 ng/mL (0.01-0.034)
[2023-11-20 12:00] VITALS: PULSE 92; O2SAT 96
[2023-11-20 12:01] VITALS: BP 112/75; PULSE 93; O2SAT 100
--- NOTE | 2023-11-20 12:19 | PC.NURSE ---
Iv placed by another nurse and removed by the tech
[2023-11-20 12:20] VITALS: BP 110/77; PULSE 88; RESP 14; O2SAT 100
== END 2023-11-20 12:21 | disposition home or self-care (01) ==
PROVIDERS: Emergency Provider Emergency Medicine; Family Provider Family Medicine; PCP Family Medicine
DX: R10.9 Unspecified abdominal pain (principal); R19.7 Diarrhea, unspecified; R06.02 Shortness of breath
CPT/HCPCS: 80053; 81003; 81025; 82550; 83690; 84484; 85025; 93005; 93010; 99282; 99284

== ENCOUNTER → 2023-11-29 16:19 | Outpatient (CLI) | payer OTHER, MEDICAID, SELFPAY | PROVIDERS: Family Provider Family Medicine; PCP Family Medicine; Referring Provider Internal Medicine; Visit Provider Internal Medicine | DX: Z23 Encounter for immunization (principal) | CPT/HCPCS: 90471; 90656 ==